=== PATIENT | female | born 1945 | race Two or more races ===

== ENCOUNTER 2017-10-30 12:50 | Emergency (ER) | payer OTHER ==
[~2017-10-30] VITALS: Ht 144.8 cm; Wt 68.0 kg
[~2017-10-30 12:50] MED LIST: CLONAZEPAM1 MG PO; DOCUSATE SODIU100 MG PO; GABAPENTIN600 MG PO; PERCOCET 5/3251 TAB PO; TYLENOL325 MG PO
[2017-10-30] MEDS ORDERED: NEURONTIN800 MG (13:41)
== END 2017-10-30 16:22 | disposition home or self-care (01) ==
LOC: ER 12:50
DX: S13.4XXA Sprain of ligaments of cervical spine, initial encounter (principal); S80.02XA Contusion of left knee, initial encounter; V43.12XA Car passenger injured in collision with other type car in nontraffic accident, initial encounter; Y93.89 Activity, other specified; Y92.488 Other paved roadways as the place of occurrence of the external cause; Y99.8 Other external cause status